=== PATIENT | female | born 1990 | race Caucasian/White ===

== ENCOUNTER 2018-08-21 10:49 | Emergency (ER) | payer OTHER, SELFPAY ==
[2018-08-21 10:52] VITALS: BP 123/79; PULSE 79; RESP 12; TEMP 36.7; O2SAT 100; BMI 32.5
[2018-08-21 12:44] VITALS: BP 110/65; PULSE 55; RESP 16; O2SAT 100
--- NOTE | 2018-08-21 12:58 | ED.GIBLEED ---
HPI - GI Bleed General Chief complaint: GI Bleed Stated complaint: anal bleeding with clots Time Seen by Provider: 08/21/18 12:34 Related Data Previous Rx's Medication Instructions Recorded cyclobenzaprine 10 mg PO Q8HP PRN #20 tab 02/11/17 oxycodone-acetaminophen [Percocet] 1 tab PO Q4HP PRN #10 tab 02/11/17 Allergies Allergy/AdvReac Type Severity Reaction Status Date / Time cephalexin [CEPHALEXIN] Allergy Severe chest pain Verified 08/21/18 10:57 hydrocodone [HYDROCODONE] Allergy Unknown Verified 08/21/18 10:57 NSAIDS (Non-Steroidal AdvReac Unknown adverse Verified 08/21/18 10:57 Anti-Inflamma with [NSAIDS (NON-STEROIDAL lithium ANTI-INFLAMMA] PFSH Social History Smoking Status: Never smoker Social History Smoking Status: Never smoker Exam Initial Vital Signs Initial Vital Signs: Vital Signs Temperature 98.1 F 08/21/18 10:52 Pulse Rate 79 08/21/18 10:52 Respiratory Rate 12 08/21/18 10:52 Blood Pressure 123/79 08/21/18 10:52 Pulse Oximetry 100 08/21/18 10:52 Course Vital Signs - 8 hr 08/21/18 10:52 08/21/18 12:44 Temperature 98.1 F Pulse Rate 79 55 L Respiratory Rate 12 16 Blood Pressure 123/79 Blood Pressure [Left Arm] 110/65 Pulse Oximetry 100 100 Discharge Plan Departure Prescriptions: No Action cyclobenzaprine 10 MG tablet 10 mg PO Q8HP PRNQty: 20 RF: 0 oxycodone-acetaminophen [Percocet] 5 MG/325 MG tablet 1 tab PO Q4HP PRNQty: 10 RF: 0
--- NOTE | 2018-08-21 13:03 | ED.GIBLEED ---
HPI - GI Bleed General Chief complaint: GI Bleed Stated complaint: anal bleeding with clots Time Seen by Provider: 08/21/18 12:34 Source: patient Mode of arrival: ambulatory Limitations: no limitations History of Present Illness HPI Narrative: This is a 28-year-old female comes in with complaint of rectal bleeding. Patient states she has had issues chronically, she had a colonoscopy 4 months ago which showed internal hemorrhoids. She has also had additional imaging of her abdomen which was negative. Patient states today she had some small clots which made her concerned. She states that she has had chronic diarrhea. She does not have a lot of frequency just very loose stools when she does have a bowel movement. Patient has not had any fevers, she does not have any abdominal pain. She has had only some very mild rectal plane. She has not had any nausea or vomiting today. She did feel nauseated yesterday. She has had a little bit of mild flank pain but states she had that a couple weeks ago and thought she might have a bladder infection but denies any frequency or urgency or dysuria. Patient states she also has a headache. She tried Tylenol [id number] without any improvement. She also takes lithium so she is not supposed to take NSAIDs. Related Data Previous Rx's Medication Instructions Recorded cyclobenzaprine 10 mg PO Q8HP PRN #20 tab 02/11/17 oxycodone-acetaminophen [Percocet] 1 tab PO Q4HP PRN #10 tab 02/11/17 Allergies Allergy/AdvReac Type Severity Reaction Status Date / Time cephalexin [CEPHALEXIN] Allergy Severe chest pain Verified 08/21/18 10:57 hydrocodone [HYDROCODONE] Allergy Unknown Verified 08/21/18 10:57 NSAIDS (Non-Steroidal AdvReac Unknown adverse Verified 08/21/18 10:57 Anti-Inflamma with [NSAIDS (NON-STEROIDAL lithium ANTI-INFLAMMA] Review of Systems Review of Systems ROS Unobtainable: All systems reviewed & are unremarkable except as noted in HPI and below Constitutional Denies chills, Denies fever(s), Reports headache(s), Denies lethargy and Denies weakness Eyes Denies change in vision ENT Ears, Nose, Mouth, and Throat: Reports headache(s) Cardiovascular Denies chest pain, Denies irregular heart rhythm, Denies lightheadedness, Denies palpitations, Denies dyspnea, Denies dyspnea on exertion and Denies orthopnea Respiratory Denies cough, Denies dyspnea, Denies dyspnea on exertion and Denies wheezing Gastrointestinal Gastrointestinal: Denies abdominal pain, Denies melena, Reports hematochezia, Denies change in bowel habits, Denies constipation, Reports diarrhea (no frequency, loose stools when has a bm.), Denies nausea and Denies vomiting Genitourinary Denies hematuria, Denies dysuria, Reports flank pain (mild bilateral), Denies urinary incontinence and Denies urinary urgency Integumentary/Breasts Denies rash and Denies unusual bruising Neurologic Reports headache(s) and Denies weakness Endocrine Denies palpitations Allergic/Immunologic Denies wheezing PFSH Medical History Hemorrhoids (Acute) Surgical History H/O colonoscopy (Acute) Social History Smoking Status: Never smoker Social History Smoking Status: Never smoker Exam Narrative Exam Narrative: GENERAL: Alert and oriented x three, obese female in mild distress. HEENT: Head normocephalic, atraumatic, EOMI, pupils reactive, no photophobia, face symmetric, moist mucous membranes NECK: Supple, full range of motion CARDIOVASCULAR: Regular rate and rhythm without murmurs, rubs or gallops. RESPIRATORY: Breath sounds equal bilaterally, no wheezes rales or rhonchi. ABDOMEN: Soft, nontender. Normoactive bowel sounds all 4 quadrants. No guarding or rebound, rigidity, no mass : No CVA tenderness EXTREMITIES: Normal range of motion, no clubbing or edema. Neurovascularly intact NEUROLOGICAL: Cranial nerves II through XII grossly intact. Moving all extremities. 5/5 muscle strength upper and lower extremities. Normal gait. SKIN: Warm, dry, no petechiae, no rashes or lesions. Initial Vital Signs Initial Vital Signs: Vital Signs Temperature 98.1 F 08/21/18 10:52 Pulse Rate 79 08/21/18 10:52 Respiratory Rate 12 08/21/18 10:52 Blood Pressure 123/79 08/21/18 10:52 Pulse Oximetry 100 08/21/18 10:52 Course Orders Ordered: ED Orders 08/21/18 13:27 Complete Blood Count AUTO DIFF Stat Comprehensive Metabolic Panel Stat [place] Stat Discontinued Medications Diphenhydramine HCl (Benadryl) 25 mg PO NOW ONE Stop: 08/21/18 13:15 Last Admin: 08/21/18 13:44 Dose: 25 mg Prochlorperazine (Compazine) 10 mg PO NOW ONE Stop: 08/21/18 13:15 Last Admin: 08/21/18 14:01 Dose: 10 mg Vital Signs - 8 hr 08/21/18 10:52 08/21/18 12:44 08/21/18 14:01 Temperature 98.1 F Pulse Rate 79 55 L 78 Respiratory Rate 12 16 Blood Pressure 123/79 122/72 Blood Pressure [Left Arm] 110/65 Pulse Oximetry 100 100 08/21/18 14:02 Temperature Pulse Rate 72 Respiratory Rate 14 Blood Pressure Blood Pressure [Left Arm] 122/70 Pulse Oximetry MDM - GI Bleed Lab Data Attestation: I reviewed the patient's lab results. Result diagrams: 08/21/18 13:27 08/21/18 13:27 Lab Results 08/21/18 08/21/18 08/21/18 Range/Units 13:27 13:27 13:27 WBC 11.9 H (4.5-11.0) X10^3/uL RBC 4.58 (4.0-5.2) X10^6/uL Hgb 13.8 (12.0-16.0) g/dL Hct 41.0 (36-46) % MCV 89.4 (80-100) fL MCH 30.0 (26-34) PG MCHC 33.6 (30-36) % RDW 13.0 (11.6-14.8) % Plt Count 350 (150-400) X10^3/uL Neut % (Auto) 80.1 H (50-75) % Lymph % (Auto) 13.5 L (25-40) % [place] % (Auto) 3.6 (3-14) % Eos % (Auto) 2.3 (2-4) % Baso % (Auto) 0.5 (0-2) % Neut # (Auto) 9600 H (8443-3484) /uL Lymph # (Auto) 1600 (5299-7362) /uL [place] # (Auto) 400 (0-900) /uL Eos # (Auto) 300 (0-450) /uL Baso # (Auto) 100 (0-100) /uL Sodium 140 (137-145) mmol/L Potassium 4.0 (3.4-5.1) mmol/L Chloride 101 (98-107) mmol/L Carbon Dioxide 28 (22-32) mmol/L BUN 9 (7-17) mg/dL Creatinine 0.70 (0.52-1.04) mg/dL Estimated GFR > 60.0 (>60) mL/min BUN/Creatinine Ratio 12.9 (6-22) Glucose 105 H (70-100) mg/dL Calcium 9.7 (8.4-10.2) mg/dL Total Bilirubin 0.3 (0.2-1.3) mg/dL AST 38 H (14-36) IU/L ALT 40 (9-52) IU/L Alkaline Phosphatase 72 (38-126) U/L Total Protein 7.6 (6.3-8.2) g/dL Albumin 4.9 (3.5-5.0) g/dL Globulin 2.7 (1.7-4.1) g/dL Albumin/Globulin Ratio 1.8 (1.0-2.8) [place] 0.6 (0.6-1.2) mmol/L Point of Care Testing Test Results Negative Urine Dip Bedside Urine Glucose Negative Bedside Urine Bilirubin - Negative Bedside Urine Ketone - Negative Urine Specific [place] 1.010 Bedside Urine Occult Blood - Negative Bedside Urine pH 8 Bedside Urine Protein - Negative Bedside Urine Urobilinogen - Negative Bedside Urine Nitrite - Negative Bedside Urine Leukocytes - Negative Esterase MDM Narrative Medical decision making narrative: Discussed with patient Liseth that she should follow up with the folks who did her colonoscopy if she has continued to have issues as likely her bleeding is from her known hemorrhoids. Her colonoscopy was 4 months ago. The patient's hemoglobin is stable, the rest of her lab work shows no major changes. Her lithium level is 0.6 and she was informed of this so she can share with her psychiatrist and they can adjust her medications. She states her symptoms have been well controlled. Headache is present but has been improving with medications. Discharge Plan Departure Patient Disposition: Home Clinical Impression: Rectal bleeding, Headache Discharge Date/Time: 08/21/18 14:58 Interventions: ED Discharge Assessment Last Done: 08/21/18 14:58 Instructions: DI for Rectal Bleeding Activity Restrictions/Additional Instructions: Follow up with your physician in the next 3-5 days for recheck. Call for an appointment. Continue your home medications as prescribed. Your lithium level today is 0.6 Return to ER for increasing rectal bleeding, weakness, passing out, chest pain, shortness of breath, persistent vomiting, or other new or concerning symptoms. Prescriptions: No Action cyclobenzaprine 10 MG tablet 10 mg PO Q8HP PRNQty: 20 RF: 0 oxycodone-acetaminophen [Percocet] 5 MG/325 MG tablet 1 tab PO Q4HP PRNQty: 10 RF: 0
[2018-08-21 13:37] LABS: Add Manual Diff / Slide Review NO; Basophils Absolute Auto 100 /uL (0-100); Basophils Percent Auto 0.5 % (0-2); Eosinophils Absolute Auto 300 /uL (0-450); Eosinophils Percent Auto 2.3 % (2-4); Hemoglobin 13.8 g/dL (12.0-16.0); Lymphocytes Absolute Auto 1600 /uL (1100-4500); Lymphocytes Percent Auto 13.5 % (25-40); Mean Corpuscular HGB Conc 33.6 % (30-36); Mean Corpuscular Volume 89.4 fL (80-100); Monocytes Absolute Auto 400 /uL (0-900); Monocytes Percent Auto 3.6 % (3-14); Neutrophils Absolute Auto 9600 /uL (1500-7000); Neutrophils Percent Auto 80.1 % (50-75); Platelet Count 350 X10^3/uL (150-400); Red Blood Cell Count 4.58 X10^6/uL (4.0-5.2); White Blood Cell Count 11.9 X10^3/uL (4.5-11.0)
[2018-08-21] MEDS: diphenhydrAMINE 25 MG TABLET PO (13:44)
[2018-08-21 13:47] LABS: Alanine Aminotransferase 40 IU/L (9-52); Albumin 4.9 g/dL (3.5-5.0); Albumin Globulin Ratio 1.8 (1.0-2.8); Alkaline Phosphatase 72 U/L (38-126); Aspartate Aminotransferase 38 IU/L (14-36); BUN Creatinine Ratio 12.9 (6-22); Bilirubin Total 0.3 mg/dL (0.2-1.3); Blood Urea Nitrogen 9 mg/dL (7-17); Calcium 9.7 mg/dL (8.4-10.2); Carbon Dioxide 28 mmol/L (22-32); Chloride 101 mmol/L (98-107); Estimated Glomerular Filt Rate > 60.0 mL/min (>60); Globulin 2.7 g/dL (1.7-4.1); Glucose 105 mg/dL (70-100); HEMOLYSIS < 15 (0-50); Sodium 140 mmol/L (137-145); Total Protein 7.6 g/dL (6.3-8.2)
[2018-08-21 14:01] VITALS: BP 122/72; PULSE 78
[2018-08-21] MEDS: PROCHLORPERAZINE 5 MG TABLET 10 MG PO (14:01)
[2018-08-21 14:02] VITALS: BP 122/70; PULSE 72; RESP 14
[2018-08-21 14:04] LABS: Lithium 0.6 mmol/L (0.6-1.2)
== END 2018-08-21 14:58 | disposition home or self-care (01) ==
PROVIDERS: Emergency Provider Emergency Medicine
DX: K62.5 Hemorrhage of anus and rectum (principal); R51 Headache
CPT/HCPCS: 36415; 80053; 80178; 81003; 81025; 85025; 99282; 99283

== ENCOUNTER → 2024-08-30 10:12 | Outpatient (CLI) | payer OTHER, SELFPAY ==
[2024-08-30 11:12] LABS: Add Manual Diff / Slide Review NO; Basophils Absolute Auto 0 /uL (0-100); Basophils Percent Auto 0.8 % (0-2); Eosinophils Absolute Auto 100 /uL (0-450); Eosinophils Percent Auto 2.4 % (2-4); Hematocrit 40.8 % (36-46); Hemoglobin 13.8 g/dL (12.0-16.0); Lymphocytes Absolute Auto 1900 /uL (1100-4500); Mean Corpuscular HGB Conc 33.8 % (30-36); Mean Corpuscular Hemoglobin 30.6 PG (26-34); Mean Corpuscular Volume 90.5 fL (80-100); Monocytes Absolute Auto 500 /uL (0-900); Monocytes Percent Auto 9.1 % (3-14); Neutrophils Absolute Auto 3200 /uL (1500-7000); Neutrophils Percent Auto 54.7 % (50-75); Platelet Count 356 X10^3/uL (150-400); Red Blood Cell Count 4.51 X10^6/uL (4.0-5.2); Red Cell Distribution Width 12.3 % (11.6-14.8); White Blood Cell Count 5.8 X10^3/uL (4.5-11.0)
[2024-08-30 11:32] LABS: Alanine Aminotransferase 45 IU/L (<35); Albumin 4.6 g/dL (3.5-5.0); Albumin Globulin Ratio 2.3 (1.0-2.8); Alkaline Phosphatase 61 U/L (38-126); Aspartate Aminotransferase 47 IU/L (14-36); BUN Creatinine Ratio 22.5 (6-22); Bilirubin Total 0.5 mg/dL (0.2-1.3); Blood Urea Nitrogen 16 mg/dL (7-17); Calcium 9.5 mg/dL (8.4-10.2); Carbon Dioxide 24 mmol/L (22-32); Chloride 106 mmol/L (98-107); Cholesterol 141 mg/dL (140-199); Estimated Glomerular Filt Rate > 60 mL/min (>60); Glucose 88 mg/dL (70-100); HDL Cholesterol 47 mg/dL (40-60); HEMOLYSIS < 15 (0-50); LDL Cholesterol Calculated 84 mg/dL (<100); Potassium 4.4 mmol/L (3.4-5.1); Sodium 138 mmol/L (137-145); Total Protein 6.6 g/dL (6.3-8.2); Triglycerides 49 mg/dL (35-150)
[2024-08-30 11:33] LABS: Hemoglobin A1C% w Est Avg Glu 4.8 % (4.0-6.0)
[2024-08-30 12:00] LABS: TSH w/ Reflex to FT4 0.81 uIU/mL (0.47-4.68)
== END ==
LOC: LAB 10:12
PROVIDERS: PCP Family Medicine; Referring Provider Family Medicine; Visit Provider Family Medicine
DX: Z13.6 Encounter for screening for cardiovascular disorders (principal); Z13.220 Encounter for screening for lipoid disorders; Z13.1 Encounter for screening for diabetes mellitus; Z13.29 Encounter for screening for other suspected endocrine disorder
CPT/HCPCS: 36415; 80053; 80061; 83036; 84443; 85025

== ENCOUNTER → 2025-03-21 08:47 | Outpatient (CLI) | payer OTHER, SELFPAY ==
[2025-03-21 09:20] LABS: Hemoglobin A1C% w Est Avg Glu 5.2 % (4.0-6.0)
[2025-03-21 10:01] LABS: Cholesterol 135 mg/dL (140-199); HDL Cholesterol 48 mg/dL (40-60); Triglycerides 41 mg/dL (35-150)
== END ==
PROVIDERS: PCP Family Medicine; Referring Provider Student in an Organized Health Care Education/Training Program; Visit Provider Student in an Organized Health Care Education/Training Program
DX: Z79.899 Other long term (current) drug therapy (principal)
CPT/HCPCS: 36415; 80061; 83036